=== PATIENT | male | born 1960 | race Caucasian/White ===

== ENCOUNTER 2017-05-05 06:56 | Day surgery (SDC) | payer OTHER ==
[~2017-05-05 06:56] MED LIST: KEFLEX500 M1 PO
--- NOTE | 2017-05-05 08:28 | Operative Note ---
Colonoscopy ([facility]) Procedure date: 05/05/17 Date of : 62 Procedure:Colonoscopy Colonoscopy with cold snare polypectomy Indications: Mr. Okeefe is a 56-year-old gentleman who is here for initial screening colonoscopy. He reports no abdominal pain, weight loss, change in his bowel habits or rectal bleeding. He reports no family history of colon cancer. Performing Provider: Asael Leonard MD Referrring Provider: Jeancarlos Wheeler M.D. Sedation: Fentanyl 100 mg IV/Versed 8 mg IV Procedure: Prior to the procedure, a history and physical exam was performed, and patient medications and allergies were reviewed. The risks and benefits of the procedure and the sedation options and risks were discussed with the patient. All questions were answered and informed consent was obtained. Patient identification and proposed procedure were verified by the physician and the nurse. The patient was placed in a left lateral decubitus position. Throughout the procedure, the patient's blood pressure, pulse, and oxygen saturations were monitored continuously. Findings: On digital rectal examination there was normal rectal tone. There were no external hemorrhoids. The prostate was 2+, smooth, soft, symmetric without nodules. The colonoscope was introduced through the anal canal to the rectum and advanced to the cecum. The ileocecal valve and appendiceal orifice were identified. The scope was advanced a short distance into the ileum which appeared grossly normal. The scope was then withdrawn into the colon. There were 2 colon polyps identified in the cecum 2. These ranged in size from 7-8 mm and were slightly elongated and were both removed via cold snare polypectomy. There were just a few scattered diverticuli throughout the descending and sigmoid colon (LEFT colon). The rectum itself was normal. Upon retroflexion within the rectum there were grade 1 internal hemorrhoids with an hypertrophied anal papilla. Impressions: 1. Cecal polyps 2 2. Mild left-sided diverticulosis 3. Grade 1 internal hemorrhoids with hypertrophied anal papilla Recommendations: I will follow up the polyp pathology and recommend repeat colonoscopy again in 5 years based upon the polyp histology. I would encourage fiber supplementation on a long-term daily maintenance basis. Complications: None EBL (ml): 0 at 0828
[2017-05-05 15:08] VITALS: BP 122/67
== END 2017-05-05 09:30 | disposition home or self-care (01) ==
LOC: SDC 06:56
PROVIDERS: Internal Medicine Gastroenterology
PROC: 0DBH8ZX Excision of Cecum, Via Natural or Artificial Opening Endoscopic, Diagnostic (ICD-10-PCS; principal; 2017-05-05 08:00)
DX: Z12.11 Encounter for screening for malignant neoplasm of colon (principal); D12.0 Benign neoplasm of cecum; K57.30 Diverticulosis of large intestine without perforation or abscess without bleeding; K64.0 First degree hemorrhoids